=== PATIENT | female | born 1985 | race American Indian/Alaskan Native ===

== ENCOUNTER 2019-07-08 19:58 | Emergency (ER) | payer MEDICAID ==
[2019-07-08 21:04] LABS: Basophils # (Auto) 0.1 K/mm3 (0.0-0.1); Basophils % (Auto) 1.1 % (0.0-1.8); Eosinophils % (Auto) 0.4 % (0.0-4.3); Hematocrit 33.6 % (30.3-42.9); Hemoglobin 11.2 gm/dl (10.1-14.3); Lymphocytes # (Auto) 1.1 K/mm3 (1.2-5.4); Lymphocytes % (Auto) 12.4 % (13.4-35.0); Mean Corpuscular HGB Conc 33 % (30-34); Mean Corpuscular Volume 88 fl (79-97); Monocytes # (Auto) 0.7 K/mm3 (0.0-0.8); Monocytes % (Auto) 8.7 % (0.0-7.3); Platelet Count 290 K/mm3 (140-440); Red Blood Count 3.81 M/mm3 (3.65-5.03); Red Cell Distribution Width 12.7 % (13.2-15.2)
[2019-07-08] MEDS ORDERED: SODIUM CHLORIDE 0.9% 1000 ML 1,000 ML IV ONE (21:53)
[2019-07-08] MEDS ORDERED: MORPHINE 2 MG/1 ML INJ IV ONE (21:54)
[2019-07-08] MEDS ORDERED: ONDANSETRON 4 MG/2 ML INJ IV ONE (22:14)
[2019-07-08 22:25] LABS: Alanine Aminotransferase 15 units/L (7-56); Albumin 4.2 g/dL (3.9-5); BUN/Creatinine Ratio 17; Blood Urea Nitrogen 10 mg/dL (7-17); Calcium 9.5 mg/dL (8.4-10.2); Hemolysis Index 3
--- NOTE | 2019-07-08 22:54 | Emergency Department Report ---
ED Female HPI - General Chief complaint: Abdominal Pain Stated complaint: SEVERE ABDOMINAL PAIN/MISCARRIAGE Source: patient Mode of arrival: Wheelchair Limitations: No Limitations - History of Present Illness Initial comments: Patient is a A2 34-year-old -[place]aced[place] female who is approximately 9 weeks gestation and who presents to the ED with complaint of persistent severe pelvic pain with heavy vaginal bleeding for the last 1 week, worse in the last 2 days. Patient states that she was initially evaluated by her [employer] physician Dr. Morrissey of [place] [employer] [facility] over 1 week ago who performed ultrasound and which showed IUP with no heart tones. Patient states that her [employer] physician advised her to "wait it out until it comes out by itself." Patient st ates that since then she has been having intermittent mild suprapubic pain with mild vaginal spotting but in the last 2 days the pain has worsened and the bleeding has been heavier. Patient denies nausea, vomiting, fever, chills, cough, traumatic injury, dizziness, syncope, diarrhea, dysuria, urinary frequency and urgency, vaginal discharge or low back pain, chest pain or shortness of breath. MD Complaint: vaginal bleeding, pelvic pain -: week(s) (1) Location: suprapubic, other (vaginal) Radiation: suprapubic Severity: severe Severity scale (0 -10): 8 Quality: cramping, sharp Consistency: constant Improves with: none Worsens with: none Are you Now?: Yes Associated Symptoms: denies other symptoms, vaginal bleeding, abdominal pain, nausea/vomiting, loss of appetite. denies: headaches, dysuria, hematuria, rash, seizure, shortness of breath, syncope, weakness, other - Related Data Sexually active: Yes : 4 Para: 1 A: 2 Allergies Allergy/AdvReac Type Severity Reaction Status Date / Time No Known Allergies Allergy Verified 06/28/19 18:29 ED Review of Systems ROS: Stated complaint: SEVERE ABDOMINAL PAIN/MISCARRIAGE Other details as noted in HPI Constitutional: denies: chills, fever Eyes: denies: eye pain, eye discharge, vision change ENT: denies: ear pain, throat pain Respiratory: denies: cough, shortness of breath, wheezing Cardiovascular: denies: chest pain, palpitations Endocrine: no symptoms reported Gastrointestinal: abdominal pain (Pelvic pain), nausea, vomiting. denies: diarrhea Genitourinary: abnormal menses (Heavy vaginal bleeding). denies: urgency, dysuria, discharge Musculoskeletal: denies: back pain, joint swelling, arthralgia Skin: denies: rash, lesions Neurological: denies: headache, weakness, paresthesias Psychiatric: denies: anxiety, depression Hematological/Lymphatic: denies: easy bleeding, easy bruising ED Past Medical Hx - Past Medical History Previous Medical History?: No - Surgical History Past Surgical History?: No - Social History Smoking Status: Former Smoker Substance Use Type: None ED Physical Exam - General Limitations: No Limitations General appearance: alert, in no apparent distress - Head Head exam: Present: atraumatic, normocephalic, normal inspection - Eye Eye exam: Present: normal appearance, PERRL, EOMI Pupils: Present: normal accommodation - ENT ENT exam: Present: normal exam, normal orophraynx, mucous membranes moist, TM's normal bilaterally, normal external ear exam - Neck Neck exam: Present: normal inspection, full ROM - Respiratory Respiratory exam: Present: normal lung sounds bilaterally. Absent: respiratory distress, wheezes, rales, rhonchi, chest wall tenderness, accessory muscle use, decreased breath sounds, prolonged expiratory - Cardiovascular Cardiovascular Exam: Present: regular rate, normal rhythm, normal heart sounds. Absent: systolic murmur, diastolic murmur, rubs, gallop - GI/Abdominal GI/Abdominal exam: Present: soft, tenderness (Palpable suprapubic tenderness), normal bowel sounds. Absent: guarding, rebound - Bi-manual exam: Present: other (Pelvic exam deferred) - Extremities Exam Extremities exam: Present: normal inspection - Back Exam Back exam: Present: normal inspection, full ROM. Absent: tenderness, CVA tenderness (R), CVA tenderness (L), muscle spasm, paraspinal tenderness - Neurological Exam Neurological exam: Present: alert, oriented X3, CN II-XII intact, normal gait, reflexes normal - Psychiatric Psychiatric exam: Present: normal affect, normal mood - Skin Skin exam: Present: warm, dry, intact, normal color. Absent: rash ED Course Vital Signs 07/08/19 20:13 Temperature 98.9 F Pulse Rate 91 H Respiratory 18 Rate Blood Pressure 114/73 O2 Sat by Pulse 100 Oximetry ED Medical Decision Making - Lab Data Result diagrams: 07/08/19 20:52 07/08/19 21:56 - Radiology Data Radiology results: report reviewed, image reviewed Findings [facility] [address] [place] [address] Ultrasound Report Signed Patient: PAOLA MCKAY MR#: [id number] : 1985 Acct:[id number] Age/Sex: 34 / F ADM Date: 07/08/19 Loc: ED Attending Dr: Ordering Physician: RICARDO VALDES Date of Service: 07/08/19 Procedure(s): US OB transvaginal Accession Number(s): [id number] cc: RICARDO VALDES OB Ultrasound HISTORY: Vaginal bleeding. TECHNIQUE: Grayscale and color imaging performed. COMPARISON: OB ultrasound from 06/28/2019 FINDINGS: Transabdominal and endovaginal imaging was performed. Uterus measures 8.5 x 4.4 x 6.9 cm. There is an intrauterine gestation with lack of heart tones. The crown-rump length is 1.8 cm which would correspond with an EGA of 8 weeks and 2 days. The gestational sac is also crescentic which is an abnormal appearance. Both ovaries are normal in size with complex cyst in the left which is likely functional and measures 1.8 cm. No significant pelvic free fluid. IMPRESSION: Findings worrisome for demise as above. Signer Name: Mauricio Peralta MD Signed: 07/08/2019 11:41 PM Workstation Name: [id number] Transcribed By: JW Dictated By: Mauricio Peralta MD Electronically Authenticated By: Mauricio Peralta MD Signed Date/Time: 07/08/19 234 DD/ TD/TT: - Medical Decision Making This is a A2 34-year-old -[place] female who is approximately 9 weeks gestation and who presents to the ED with complaint of persistent severe pelvic pain with heavy vaginal bleeding for the last 1 week, worse in the last 2 days. Patient states that she was initially evaluated by her [employer] physician Dr. Morrissey of [place] [employer] [facility] [facility] over 1 week ago who performed ultrasound and which showed IUP with no heart tones. Patient states that her [employer] physician advised her to "wait it out until it comes out by itself." Patient states that since then she has been having intermittent mild suprapubic pain with mild vaginal spotting but in the last 2 days the pain has worsened and the bleeding has been heavier. In the ED, patient is alert and oriented x3 and is not in distress. Patient was pain medications in the ED but declined medication for pain. Lab test results were reviewed and showed hCG quant of 874.4. The rest of the lab test results are nonactionable. The transvaginal ultrasound showed an intrauterine gestation with lack of heart tones. The crown-rump length is 1.8 cm which would correspond with an EGA of 8 weeks and 2 days. The gestational sac is also crescentic which is an abnormal appearance. These findings are worrisome for demise. Patient had stated that she has an appointment with her [employer] physician, Dr. Morrissey today Tuesday July 09, 2019 at 11:45 AM. Patient was discharged home and advised to maintain a complete pelvic rest without strenuous physical activities and to follow-up with Dr. Morrissey her [employer] physician as previously scheduled for today July 09, 2019 at 11:45 AM. Patient was otherwise advised to return to the ED immediately if symptoms get worse. - Differential Diagnosis Threatened miscarriage; UTI; demise; Subchorionic bleed; Fibroids Critical care attestation.: If time is entered above; I have spent that time in minutes in the direct care of this critically ill patient, excluding procedure time. ED Disposition Clinical Impression: Threatened miscarriage, Vaginal bleeding in , Intrauterine foetal d eath, less than 22 weeks Abdominal pain during Qualifiers: Trimester: first trimester Qualified Code(s): O26.891 - Other specified related conditions, first trimester Disposition: DC-01 TO HOME OR SELFCARE Is pt being admited?: No Does the pt Need Aspirin: No Condition: Stable Instructions: Threatened Miscarriage (ED), Abdominal Pain (ED) Additional Instructions: Take Tylenol as needed for pain. Maintain a complete pelvic rest, and follow-up with your [employer] physician today at 11:45 AM as previously scheduled. Return to the ED immediately if symptoms get worse. Referrals: PRIMARY CARE, [Primary Care Provider] - MARCO ANTONIO (FOLLOW UP WITH YOUR [employer] PHYSICIAN TODAY PREVIOUSLY SCHEDULED FOR 11:45 AM) Time of Disposition: 00:22 Print Language: RWANDAN
--- NOTE | 2019-07-08 23:45 | Ultrasound Report ---
OB Ultrasound HISTORY: Vaginal bleeding. TECHNIQUE: Grayscale and color imaging performed. COMPARISON: OB ultrasound from 06/28/2019 FINDINGS: Transabdominal and endovaginal imaging was performed. Uterus measures 8.5 x 4.4 x 6.9 cm. There is an intrauterine gestation with lack of heart tones . The crown-rump length is 1.8 cm which would correspond with an EGA of 8 weeks and 2 days. The gesta tional sac is also crescentic which is an abnormal appearance. Both ovaries are normal in size with complex cyst in the left which is likely functional and measures 1.8 cm. No significant pelvic free fluid. IMPRESSION: Findings worrisome for demise as above. Signer Name: Mauricio Peralta MD Signed: 07/08/2019 11:41 PM Workstation Name: [id number]
[2019-07-08 23:51] LABS: Bilirubin,Urine NEG (Negative); Blood,Urine NEG (Negative); Color,Urine Yellow (Yellow); Mucus,Urine 1+ /HPF; Protein,Urine <15 mg/dL mg/dL (Negative); Urobilinogen,Urine < 2.0 mg/dL (<2.0)
[2019-07-09 13:39] VITALS: BP 114/73
== END 2019-07-09 00:46 | disposition home or self-care (01) ==
LOC: ED 19:58
DX: O20.0 Threatened abortion (principal); O26.891 Other specified pregnancy related conditions, first trimester; O20.9 Hemorrhage in early pregnancy, unspecified; O36.4XX0 Maternal care for intrauterine death, not applicable or unspecified; O99.331 Smoking (tobacco) complicating pregnancy, first trimester; R10.2 Pelvic and perineal pain; Z3A.09 9 weeks gestation of pregnancy
CPT/HCPCS: 36415; 76801; 76817; 80053; 81001; 83690; 84702; 85025; 86900; 86901; 99284; J2270; J2405; J7030